=== PATIENT | female | born 1960 | race Caucasian/White ===

== ENCOUNTER 2018-07-30 16:57 | Emergency (ER) | payer MEDICARE ==
[2018-07-30] MEDS ORDERED: ONDANSETRON 4 MG TAB.RAPDIS PO ONE (17:30)
[2018-07-30] MEDS ORDERED: KETOROLAC TROMETHAMINE 60 MG/2 ML SDV IM ONE (17:31)
--- NOTE | 2018-07-30 17:32 | ER Document Report ---
ED Medical Screen (RME) - General Chief Complaint: Abdominal Pain Stated Complaint: ABDOMINAL PAIN Time Seen by Provider: 07/30/18 17:26 Mode of Arrival: Ambulatory Information source: Patient Notes: Patient presents emergency department with complaints of right upper quad abdominal pain that started after she had an egg sandwich for breakfast. Reports some nausea denies vomiting. Denies diarrhea. Denies pain with void. I have greeted and performed a rapid initial assessment of this patient. A comprehensive ED assessment and evaluation of the patient, analysis of test results and completion of the medical decision making process will be conducted by additional ED providers. Dictation of this chart was performed using voice recognition software; therefore, there may be some unintended grammatical errors. TRAVEL OUTSIDE OF THE [place] IN LAST 30 DAYS: No - Related Data Allergies/Adverse Reactions: clarithromycin [From Biaxin] Allergy (Verified 07/30/18 17:01) epinephrine Allergy (Verified 07/30/18 17:01) Penicillins Allergy (Verified 07/30/18 17:01) rosuvastatin [From Crestor] Allergy (Verified 07/30/18 17:01) Past Medical History - General Information source: Patient Last Menstrual Period: hyst - Social History Cigarette use (# per day): No Chew tobacco use (# tins/day): No Frequency of alcohol use: None Drug Abuse: None Lives with: Family Family history: None - Medical History Medical History: Other - lupus - Past Medical History Cardiac Medical History: Reports: Hx Coronary Artery Disease, Hx Heart Attack, Hx Hypertension Renal/ Medical History: Reports: Other - Interstitial cystitis GI Medical History: Reports: Hx Irritable Bowel Past Surgical History: Reports: Hx Hysterectomy Review of Systems - Review of Systems Notes: Review HPI for review of systems., All other systems negative Physical Exam - Vital signs Vitals: Temp Pulse Resp BP Pulse Ox 97.5 F 99 16 147/95 H 93 07/30/18 17:03 07/30/18 17:03 07/30/18 17:03 07/30/18 17:03 07/30/18 17:03 - Notes Notes: PHYSICAL EXAMINATION: GENERAL: looks like she is hurting, nontoxic looking HEAD: Atraumatic, normocephalic. EYES: Pupils equal round, extraocular movements intact, sclera anicteric, conjunctiva are normal. ENT: nares patent. Moist mucous membranes. NECK: Normal range of motion, supple without lymphadenopathy LUNGS: CTAB and equal. No wheezes rales or rhonchi. HEART: Regular rate and rhythm without murmurs ABDOMEN: Soft, RUQ/ epigastric area TTP No guarding, no rebound EXTREMITIES: Normal range of motion . NEUROLOGICAL: Cranial nerves grossly intact. Normal sensory/motor exams. PSYCH: Normal mood, normal affect. SKIN: Warm, Dry, normal turgor, no rashes or lesions noted Course - Re-evaluation Re-evalutation: 07/30/18 17:38 Patient instructed on plan of care to include Toradol and Zofran for nausea and pain. Gallbladder ultrasound ordered. - Vital Signs Vital signs: Temp Pulse Resp BP Pulse Ox 97.5 F 99 16 147/95 H 93 07/30/18 17:03 07/30/18 17:03 07/30/18 17:03 07/30/18 17:03 07/30/18 17:03 - Laboratory Result Diagrams: 07/30/18 18:30 07/30/18 18:30 Laboratory results interpreted by me: 07/30/18 07/30/18 07/30/18 17:09 18:30 18:30 WBC 13.1 H Seg Neutrophils % 88.2 H Lymphocytes % 8.3 L Absolute Neutrophils 11.6 H Glucose 186 H Total Bilirubin 1.4 H Direct Bilirubin 0.5 H AST 177 H ALT 126 H Total Protein 8.6 H Lipase 23929.0 H Ur Leukocyte Esterase MODERATE H
[2018-07-30 19:00] LABS: ABSOLUTE LYMPHOCYTES (AUTO) 1.1 10^3/uL (0.5-4.7); ABSOLUTE MONOCYTES (AUTO) 0.4 10^3/uL (0.1-1.4); ABSOLUTE NEUT (AUTO) 11.6 10^3/uL (1.7-8.2); BASOPHILS % (AUTO) 0.3 % (0-2); EOSINOPHILS % (AUTO) 0.1 % (0-6); HEMATOCRIT 45.6 % (36.0-47.0); HEMOGLOBIN 15.3 g/dL (12.0-15.5); LYMPHOCYTES % (AUTO) 8.3 % (13-45); MEAN CORPUSCULAR HEMOGLOBIN 30.2 pg (27.0-33.4); MEAN CORPUSCULAR HGB CONC 33.5 g/dL (32.0-36.0); MEAN CORPUSCULAR VOLUME 90 fl (80-97); MONOCYTES % (AUTO) 3.1 % (3-13); PLATELET COUNT 326 10^3/uL (150-450); RED BLOOD COUNT 5.06 10^6/uL (3.72-5.28); RED CELL DISTRIBUTION WIDTH 13.3 % (11.5-14.0); SEGMENTED NEUTROPHILS % (AUTO) 88.2 % (42-78); TOTAL CELLS COUNTED % (AUTO) 100 %; WHITE BLOOD COUNT 13.1 10^3/uL (4.0-10.5)
[2018-07-30 19:19] LABS: ALANINE AMINOTRANSFERASE 126 U/L (9-52); ALBUMIN 4.9 g/dL (3.5-5.0); ALKALINE PHOSPHATASE 114 U/L (38-126); ANION GAP 16 (5-19); ASPARTATE AMINO TRANSFERASE 177 U/L (14-36); BILIRUBIN,DIRECT 0.5 mg/dL (0.0-0.4); BILIRUBIN,TOTAL 1.4 mg/dL (0.2-1.3); BLOOD UREA NITROGEN 16 mg/dL (7-20); CALCIUM 10.2 mg/dL (8.4-10.2); CARBON DIOXIDE 27 mmol/L (22-30); CHLORIDE 98 mmol/L (98-107); GLUCOSE 186 mg/dL (75-110); SODIUM 140.6 mmol/L (137-145); TOTAL PROTEIN 8.6 g/dL (6.3-8.2)
[2018-07-30 19:29] LABS: APPEARANCE,URINE CLEAR; BILIRUBIN,URINE NEGATIVE (NEGATIVE); COLOR,URINE YELLOW; GLUCOSE, URINE NEGATIVE (NEGATIVE); KETONES,URINE NEGATIVE (NEGATIVE); LEUKOCYTE ESTERASE,URINE MODERATE (NEGATIVE); NITRITE,URINE NEGATIVE (NEGATIVE); PROTEIN,URINE NEGATIVE (NEGATIVE); URINE SPECIFIC GRAVITY 1.009; UROBILINOGEN,URINE NEGATIVE mg/dL (<2.0)
--- NOTE | 2018-07-30 19:56 | RADIOLOGY REPORT (SQ) ---
EXAM DESCRIPTION: U/S ABDOMEN LIMITED W/O DOP COMPLETED DATE/TIME: 07/30/2018 7:09 pm REASON FOR STUDY: RUQ, epigastric pain COMPARISON: None. TECHNIQUE: Dynamic and static grayscale images acquired of the abdomen and recorded on PACS. Additio ann selected color Doppler and spectral images recorded. LIMITATIONS: None. FINDINGS: PANCREAS: Poorly seen. No obvious mass. LIVER: Increased echogenicity. No mass. LIVER VASCULATURE: Normal directional flow of the main portal vein and hepatic veins. GALLBLADDER: Small gallstones are present. There is thickening of the gallbladder wall and perichole cystic fluid. ULTRASOUND-DETECTED KAUR'S SIGN: Positive. INTRAHEPATIC DUCTS AND COMMON DUCT: CBD and intrahepatic ducts normal caliber. No filling defects. INFERIOR VENA CAVA: Not imaged. AORTA: No aneurysm. RIGHT KIDNEY: Normal size, 10.8 cm. Normal echogenicity. No solid or suspicious masses. No hydroneph rosis. No calcifications. PERITONEAL AND RIGHT PLEURAL SPACE: No ascites or effusions. OTHER: No other significant findings. IMPRESSION: Cholelithiasis with evidence of cholecystitis. Hepatic steatosis. TECHNICAL DOCUMENTATION: JOB ID: [id number] [employer]- All Rights Reserved Reading location - IP/workstation name: [email or web address]
[2018-07-30] MEDS ORDERED: NORMAL SALINE 1000 ML 1,000 ML IV ONE ×2 (21:33)
[2018-07-30] MEDS ORDERED: ONDANSETRON HCL INJ/PF 4 MG/2 ML SDV IV ONE (21:34)
[2018-07-30] MEDS ORDERED: MORPHINE SULFATE 10 MG/ML INJ IV ONE (21:34)
--- NOTE | 2018-07-30 21:53 | ER Document Report ---
ED GI/ <KATERYNAOVIDIOTATIANADIANNA DEL CASTILLO - Last Filed: 07/31/18 20:28> - General Mode of Arrival: Ambulatory Information source: Patient TRAVEL OUTSIDE OF THE [place] IN LAST 30 DAYS: No - HPI Patient complains to provider of: Abdominal pain, Vomiting Onset: This afternoon Timing/Duration: Gradual, Worse Quality of pain: Sharp, Stabbing Severity at maximum: Severe Severity in ED: Severe Pain Level: 5 Location: RUQ Vaginal bleeding (Compared to normal period): None Associated symptoms: Vomiting Exacerbated by: Denies Relieved by: Denies Similar symptoms previously: No Recently seen / treated by doctor: Ofelia <DAMIR MEJIA - Last Filed: 08/01/18 02:43> - General Chief Complaint: Abdominal Pain Stated Complaint: ABDOMINAL PAIN Time Seen by Provider: 07/30/18 17:26 Primary Care Provider: DIAMOND MARTINEZ PA [Primary Care Provider] - Follow up as needed Notes: 58-year-old female presented to ED for complaint of severe right upper quadrant abdominal pain. She states that just started today. She states she is off and on had little twinges but nothing like today. She states she has a history of anxiety GERD and fibromyalgia lupus interstitial cystitis coronary artery disease high blood pressure and cholesterol. She states she has had a hysterectomy and a . She is also had a laminectomy. None of these are recent. She states she was severely nauseated and she needs fluids right away because she has interstitial cystitis and cannot go without drinking fluids. (DAMIR MEJIA) - Related Data Allergies/Adverse Reactions: clarithromycin [From Biaxin] Allergy (Verified 07/30/18 17:01) epinephrine Allergy (Verified 07/30/18 17:01) Penicillins Allergy (Verified 07/30/18 17:01) rosuvastatin [From Crestor] Allergy (Verified 07/30/18 17:01) Past Medical History - General Information source: Patient Last Menstrual Period: hyst - Social History Smoking Status: Never Smoker Cigarette use (# per day): No Chew tobacco use (# tins/day): No Frequency of alcohol use: None Drug Abuse: None Lives with: Family Family History: Reviewed & Not Pertinent Patient has suicidal ideation: No Patient has homicidal ideation: No - Medical History Medical History: Other - lupus - Past Medical History Cardiac Medical History: Reports: Hx Coronary Artery Disease, Hx Heart Attack, Hx Hypertension Pulmonary Medical History: Reports: None EENT Medical History: Reports: None Neurological Medical History: Reports: None Endocrine Medical History: Reports: None Renal/ Medical History: Reports: Other - Interstitial cystitis, lupus Malignancy Medical History: Reports: None GI Medical History: Reports: Hx Gastroesophageal Reflux Disease, Hx Irritable Bowel Musculoskeletal Medical History: Reports Hx Fibromyalgia, 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 Skin Medical History: Reports None Psychiatric Medical History: Reports: None Traumatic Medical History: Reports: None Infectious Medical History: Reports: None Past Surgical History: Reports: Hx Section, Hx Hysterectomy, Hx Orthopedic Surgery - laminectomy - Immunizations Immunizations up to date: Yes <DAMIR MEJIA - Last Filed: 08/01/18 02:43> Review of Systems - Review of Systems Constitutional: No symptoms reported EENT: No symptoms reported Cardiovascular: No symptoms reported Respiratory: No symptoms reported Gastrointestinal: Abdominal pain, Nausea, Vomiting Genitourinary: No symptoms reported Female Genitourinary: No symptoms reported Musculoskeletal: No symptoms reported Skin: No symptoms reported Hematologic/Lymphatic: No symptoms reported Neurological/Psychological: No symptoms reported -: Yes All other systems reviewed and negative <DAMIR MEJIA - Last Filed: 08/01/18 02:43> Physical Exam - Vital signs Interpretation: Normal - General General appearance: Appears well, Alert - HEENT Head: Normocephalic, Atraumatic Eyes: Normal Pupils: PERRL - Respiratory Respiratory status: No respiratory distress Chest status: Nontender Breath sounds: Normal Chest palpation: Normal - Cardiovascular Rhythm: Regular Heart sounds: Normal auscultation Murmur: No - Abdominal Inspection: Normal Distension: No distension Bowel sounds: Normal Tenderness: Tender, Martines's sign, Guarding Organomegaly: No organomegaly - Back Back: Normal, Nontender - Extremities General upper extremity: Normal inspection, Nontender, Normal color, Normal ROM, Normal temperature General lower extremity: Normal inspection, Nontender, Normal color, Normal ROM, Normal temperature, Normal weight bearing. No: Ann's sign - Neurological Neuro grossly intact: Yes Cognition: Normal Orientation: AAOx4 Morgan Coma Scale Eye Opening: Spontaneous Morgan Coma Scale Verbal: Oriented [place] Coma Scale Motor: Obeys Commands Morgan Coma Scale Total: 15 Speech: Normal Motor strength normal: LUE, RUE, LLE, RLE Sensory: Normal - Psychological Associated symptoms: Normal affect, Normal mood - Skin Skin Temperature: Warm Skin Moisture: Dry Skin Color: Normal <DAMIR MEJIA - Last Filed: 08/01/18 02:43> - Vital signs Vitals: Temp Pulse Resp BP Pulse Ox 97.5 F 99 16 147/95 H 93 07/30/18 17:03 07/30/18 17:03 07/30/18 17:03 07/30/18 17:03 07/30/18 17:03 Course - Laboratory Result Diagrams: 07/30/18 18:30 07/30/18 18:30 <DIANNA JORDAN - Last Filed: 07/31/18 20:28> - Laboratory Result Diagrams: 07/30/18 18:30 07/30/18 18:30 - Diagnostic Test Radiology reviewed: Reports reviewed <DAMIR MEJIA - Last Filed: 08/01/18 02:43> - Re-evaluation Re-evalutation: 07/31/18 20:26 LATE ENTRY: I was at the bedside just prior to patient transfer. She was stable and her vital signs were within normal limits. She was no acute distress. She was stable and safe to transfer. (DIANNA JORDAN) 07/30/18 22:[address] Millan concerning the ultrasound result of a cholecystitis with cholelithiasis. The lipase is 78,003. He states this is pancreatitis not cholecystitis. He states she needs CAT scans and be admitted not surgery at this time. I consulted who is the covering physician. She states to get a CT IV contrasted abdomen and pelvis. This has been ordered. Patient has been ordered IV fluids morphine and Zofran for her discomfort. The CT IV contrast has been ordered also. 07/31/18 00:42 CT resulted and showed pancreatitis uncomplicated with gallstones and possible cholecystitis. I consulted Dr. lezama again who stated that I should now call the hospitalist to get the patient admitted I consulted Dr. Gillette who stated this was a surgical patient not a hospital patient and that if she had gallbladder pancreatitis she would probably need a ERCP and we do not do ERCPs at this hospital. I then spoke with my attending physician who spoke with the surgeon listed again and they all agreed that I should call the exec. creative director and see if he would do ERCP. I consulted Dr. Jimenes who stated he does not do ERCPs in the one at the hospital does ERCPs patient would need to be transferred. I have called [facility], [facility], and [facility] none of which could take this patient tonight. I have now called [facility] and awaiting for callback from them. 07/31/18 01:[address] Grover Huff at [facility] ER physician. He has accepted the patient ER to ER transfer. Transportation will be arranged and patient will be transferred to [facility]. 07/31/18 02:02 Consulted for recommendations for antibiotics. She recommended Merrem iv she was aware patient was allergic to penicillin and stated very rare cross allergy with this medication and nurse should monitor closely. Nurse was instructed to monitor closely (DAMIR MEJIA) - Vital Signs Vital signs: Temp Pulse Resp BP Pulse Ox 98.0 F 84 16 137/76 H 95 07/31/18 10:36 07/31/18 09:15 07/31/18 09:15 07/31/18 10:36 07/31/18 10:36 - Laboratory Laboratory results interpreted by me: 07/30/18 07/30/18 07/30/18 17:09 18:30 18:30 WBC 13.1 H Seg Neutrophils % 88.2 H Lymphocytes % 8.3 L Absolute Neutrophils 11.6 H Glucose 186 H Total Bilirubin 1.4 H Direct Bilirubin 0.5 H AST 177 H ALT 126 H Total Protein 8.6 H Lipase 04918.0 H Ur Leukocyte Esterase MODERATE H Discharge <DIANNA JORDAN - Last Filed: 07/31/18 20:28> <DAMIR MEJAI - Last Filed: 08/01/18 02:43> - Discharge Clinical Impression: Acute gallstone pancreatitis Disposition: [place] Referrals: DIAMOND MARTINEZ PA [Primary Care Provider] - Follow up as needed
--- NOTE | 2018-07-30 22:50 | RADIOLOGY REPORT (SQ) ---
EXAM DESCRIPTION: CT ABDOMEN PELVIS WITH IV CONTRAST COMPLETED DATE/TME: 07/30/2018 21:45 CLINICAL HISTORY: 58 years, Female, ruq abdominal pain gall stone lipase [id number] CREAT 0.55 COMPARISON: None. TECHNIQUE: Contrast enhanced CT of the abdomen/pelvis was performed. Coronal and sagittal reformations were acquired. Images stored on PACS. All CT scanners at this facility use dose modulation, iterative reconstruction, and/or weight based dosing when appropriate to reduce radiation dose to as low as reasonably achievable (ALARA). [facility]: Dose Right [facility]: CareDose [facility]: Dose Right [facility]: Teradose 4D [facility]: BioExx Specialty Proteins LIMITATIONS: None. FINDINGS: Limited evaluation of the lower chest reveals bands of opacity about both lung bases, indicating atelectasis or scar. The liver is diffusely low in attenuation relative to the spleen. No focal liver lesions are appreciated. Areas of focal fatty sparing noted adjacent to the gallbladder fossa. The spleen and both adrenal glands appear normal. Hyperdensity appears to be located about the periphery of the gallbladder neck, raising the possibility of small stones. There is no significant intrahepatic or common bile duct dilatation. The pancreas is diffusely edematous with associated adjacent inflammatory stranding. The pancreatic parenchyma appears to enhance normally. No adjacent drainable fluid collections are appreciated. Both kidneys enhance symmetrically. There is no hydronephrosis or hydroureter. The urinary bladder is collapsed, thus its evaluation is limited. The small and large bowel appear normal in caliber without areas of focal wall thickening. No evidence of bowel obstruction. The appendix is not visualized; however, no pericecal inflammatory changes are appreciated. Vascular structures appeared opacify with contrast normally, including the splenic vein and superior mesenteric vein. No suspicious lymphadenopathy or drainable fluid collections are appreciated. Bone windows show no destructive osseous lesions. IMPRESSION: Findings consistent with acute, uncomplicated pancreatitis. Hepatic steatosis. Suspect cholelithiasis. TECHNICAL DOCUMENTATION: Quality ID # [id number]: Final reports with documentation of one or more dose reduction techniques (e.g., Automated exposure control, adjustment of the mA and/or kV according to patient size, use of iterative reconstruction technique) copyright 2010 [employer]- All Rights Reserved
[2018-07-31] MEDS ORDERED: NORMAL SALINE 1000 ML 1,000 ML IV ONE (00:49)
[2018-07-31] MEDS ORDERED: ONDANSETRON HCL INJ/PF 4 MG/2 ML SDV IV ONE (00:53)
[2018-07-31] MEDS ORDERED: MORPHINE SULFATE 10 MG/ML INJ IV ONE (00:53)
[2018-07-31] MEDS ORDERED: MEROPENEM 1 GM VIAL IV ONE (01:54)
[2018-07-31] MEDS: MORPHINE SULFATE 10 MG/ML INJ IV PRN ×3 (04:21→09:53)
[2018-07-31] MEDS: ONDANSETRON HCL INJ/PF 4 MG/2 ML SDV IV PRN ×3 (04:22→09:52)
--- NOTE | 2018-07-31 08:50 | Progress Note ---
Provider Note Provider Note: I was called about this patient overnight apparently there was some disagreement about which service this patient should have been admitted under patient presented with RUQ pain had ultrasound done CT scan showed possible gallstone at the neck of gallbladder patient had abnormal LFT's ? of Mirizzi syndrome which is a surgical issue I had spoken to Dr Gillette to advise of my findings later in the evening, I had also spoken to the ED provider No ERCP availability patient has elevated WBC and now has elevated T bili Mirizzi syndrome is the impaction of a gallstone at the neck of the gallbladder which on occasion can lead to fistula formation patient is now being transferred to a tertiary institution transfer is in progress would watch patient carefully while still here since it is usually a surgical case.
[2018-07-31 10:47] VITALS: BP 137/76
== END 2018-07-31 10:53 | disposition short-term general hospital (02) ==
LOC: ER 16:57
DX: K85.10 Biliary acute pancreatitis without necrosis or infection (principal); R10.11 Right upper quadrant pain; R11.2 Nausea with vomiting, unspecified; I10 Essential (primary) hypertension; I25.10 Atherosclerotic heart disease of native coronary artery without angina pectoris; Z88.3 Allergy status to other anti-infective agents; Z88.0 Allergy status to penicillin; I25.2 Old myocardial infarction; Z90.710 Acquired absence of both cervix and uterus
CPT/HCPCS: 96376; 99285; 96372; 96361; 96375; 96365; 36415; 83690; 85025; 80053; 81001; 76705; 74177; J1885; A9270; J2270 ×2; J2405 ×2; J7030 ×2; J2185; S0119